=== PATIENT | male | born 1990 | race Caucasian/White ===

== ENCOUNTER → 2016-08-07 | Outpatient (CLI) | payer OTHER ==
[2016-08-07 16:30] LABS: Bilirubin, Delta 0.2 mg/dL (0.0-0.2); Total Protein 7.4 g/dL (6.3-8.2)
[2016-08-10 08:27] LABS: HCV Qualitative Result Not detected (Not detected)
== END | disposition home or self-care (01) ==
LOC: LABWHC1 15:37
PROVIDERS: ATTEND Physician Assistant
DX: B19.20 Unspecified viral hepatitis C without hepatic coma (principal)
CPT/HCPCS: 36415; 80076; 87522

== ENCOUNTER 2018-09-01 02:39 | Emergency (ER) | payer OTHER ==
[2018-09-01 02:50] VITALS: BP 127/77; PULSE 61; RESP 18; TEMP 97.9
== END 2018-09-01 03:06 | disposition home or self-care (01) ==
LOC: EC 02:39
DX: Z02.89 Encounter for other administrative examinations (principal)